=== PATIENT | female | born 1935 | race Hispanic/Latino ===

== ENCOUNTER 2017-11-07 17:47 | Inpatient (IN) | payer OTHER ==
[~2017-11-07] VITALS: Ht 162.6 cm; Wt 78.1 kg
[~2017-11-07 17:47] MED LIST: BENZ1LOZ68 MM; BETA15OI19 TP; ESOM40CA54 PO; FERS325 PO; FURO20TA4 PO; INSU100I13 SQ; METO-391 PO; MIRT30TA6 PO; MONT10TA24 PO; SIMV10TA6 PO; TRAM50TA4 PO; VALS320T16 PO
[2017-11-07 19:19] LABS: CREATININE 0.9 mg/dL (0.5-1.5); POTASSIUM 3.6 mmol/L (3.5-5.1)
[2017-11-07 19:24] LABS: ALBUMIN 2.7 g/dL (3.5-5.0); BILIRUBIN,TOTAL 1.6 mg/dL (0.2-1.0); TOTAL PROTEIN, SERUM 7.5 g/dL (6.0-8.3)
[2017-11-07 19:25] LABS: BASOPHILS % (AUTO) 0.7 % (0.0-5.0); EOSINOPHILS % (AUTO) 2.2 % (0.0-8.0); HEMATOCRIT 32.3 % (36-48); LYMPHOCYTES % (AUTO) 30.9 % (21.0-51.0); MEAN CORPUSCULAR HEMOGLOBIN 34.3 pg (27.0-33.0); MEAN CORPUSCULAR HGB CONC 34.7 g/dL (32.0-36.0); MEAN CORPUSCULAR VOLUME 98.8 fL (79-99); MONOCYTES % (AUTO) 14.8 % (3.0-13.0); NEUTROPHILS % (AUTO) 51.4 % (40.0-77.0); NUCLEATED RED BLOOD CELLS 0.1 % (0.0-0.19); PLATELET COUNT (AUTO) 122 K/uL (130-400); RED BLOOD CELL COUNT(AUTO) 3.27 MIL/uL (4.00-5.50); RED CELL DISTRIBUTION WIDTH 15.1 % (11.0-15.5); WHITE BLOOD COUNT (AUTO) 4.9 K/uL (4.8-10.8)
[2017-11-07 19:59] LABS: INR 1.15 (0.85-1.15); PARTIAL THROMBOPLASTIN TIME 26.3 SEC (26.3-35.5)
[2017-11-07 21:13] VITALS: BP 148/64
[2017-11-07] MEDS ORDERED: SODIUM CHLORIDE 0.9% 10 ML VIAL IVP PRN (21:30)
[2017-11-07] MEDS ORDERED: DEXTROSE 50%-WATER 50 ML DISP.SYRIN IV PRN (21:45)
[2017-11-07] MEDS ORDERED: GLUCAGON 1MG KIT 1 MG ML IM PRN (21:45)
[2017-11-07] MEDS ORDERED: GLIM2TAB3 PO (21:53)
[2017-11-07] MEDS ORDERED: FURO40TA7 PO (21:53)
[2017-11-07] MEDS ORDERED: FLUT16H NASAL (21:53)
[2017-11-07] MEDS ORDERED: ACET-2247 PO (21:53)
[2017-11-07] MEDS ORDERED: DULO20CA17 PO (21:53)
[2017-11-07] MEDS ORDERED: OMEP20CA10 PO (21:53)
[2017-11-07] MEDS ORDERED: NITR0.4T50 SL (21:53)
[2017-11-07] MEDS ORDERED: CHOL50004 PO (21:53)
[2017-11-07] MEDS ORDERED: LACT10SO9 PO (21:53)
[2017-11-07] MEDS ORDERED: LINA5TAB PO (21:53)
[2017-11-07] MEDS ORDERED: FUROSEMIDE 10 MG/ML 4ML VIAL ONE (22:36)
[2017-11-07 23:23] VITALS: BP 110/44
[2017-11-08 00:49] LABS: APPEARANCE,URINE Clear (CLEAR); BILIRUBIN,URINE Negative (NEGATIVE); COLOR,URINE Yellow (YELLOW); GLUCOSE, URINE (UA) Negative (NEGATIVE); KETONES,URINE Negative (NEGATIVE); LEUKOCYTE ESTERASE ,URINE Moderate (NEGATIVE); NITRATE,URINE Negative (NEGATIVE); OCCULT BLOOD,URINE Negative (NEGATIVE); PH,URINE 5.5 (5.0-8.0); PROTEIN,URINE Negative (NEGATIVE); UROBILINOGEN,URINE 0.2 mg/dL (0.2-1.0)
[2017-11-08 00:58] LABS: BACTERIA,URINE None Seen /HPF (None Seen); RBC,URINE None Seen /HPF (0-1); SQUAMOUS EPITHELIAL CELL,UR Few /HPF (0-2); WBC,URINE 0-1 /HPF (0-1)
[2017-11-08 03:47] VITALS: BP 103/57
[2017-11-08 03:51] LABS: HEMATOCRIT 29.6 % (36-48); MEAN CORPUSCULAR HEMOGLOBIN 35.2 pg (27.0-33.0); MEAN CORPUSCULAR HGB CONC 35.6 g/dL (32.0-36.0); MEAN CORPUSCULAR VOLUME 98.7 fL (79-99); NUCLEATED RED BLOOD CELLS 0.2 % (0.0-0.19); PLATELET COUNT (AUTO) 119 K/uL (130-400); RED BLOOD CELL COUNT(AUTO) 2.99 MIL/uL (4.00-5.50); RED CELL DISTRIBUTION WIDTH 15.7 % (11.0-15.5); WHITE BLOOD COUNT (AUTO) 4.9 K/uL (4.8-10.8)
[2017-11-08 04:07] LABS: HEMOGLOBIN A1C 6.4 % (4.0-6.0)
[2017-11-08 04:17] LABS: ALBUMIN 2.3 g/dL (3.5-5.0); BILIRUBIN,TOTAL 1.5 mg/dL (0.2-1.0); CREATININE 0.9 mg/dL (0.5-1.5); POTASSIUM 3.4 mmol/L (3.5-5.1); THYROID STIMULATING HORMONE 2.48 uIU/mL (0.36-3.74); TOTAL PROTEIN, SERUM 6.6 g/dL (6.0-8.3)
[2017-11-08] MEDS ORDERED: POTASSIUM CHLORIDE 20MEQ/100ML 100 ML IV PRN (05:30)
[2017-11-08] MEDS ORDERED: LIDOCAINE HCL-MPF 1% 2ML VIAL IVP PRN (05:30)
[2017-11-08] MEDS ORDERED: POTASSIUM CHLORIDE 10% ELIXIR 20 MEQ/15 ML UDCUP PO PRN (05:30)
[2017-11-08] MEDS: POTASSIUM CHLORIDE 20 MEQ ERTAB PO PRN (06:19)
[2017-11-08] MEDS: SPIRONOLACTONE 25 MG TAB PO SCH ×2 (06:20→12:08)
[2017-11-08] MEDS: INSULIN R PO SS1 SQ SCH ×4 (06:21→21:23)
[2017-11-08] MEDS: FUROSEMIDE 10 MG/ML 4ML VIAL IVP SCH ×2 (06:21→12:08)
[2017-11-08 07:45] VITALS: BP 121/62
[2017-11-08] MEDS: POTASSIUM CHLORIDE 10% ELIXIR 20 MEQ/15 ML UDCUP PO SCH ×3 (10:18→21:20)
[2017-11-08 11:16] VITALS: BP 109/71
[2017-11-08 15:49] VITALS: BP 108/59
[2017-11-08 19:43] VITALS: BP 115/61
[2017-11-08] MEDS: MONTELUKAST SODIUM 10 MG TAB PO SCH (21:21)
[2017-11-08] MEDS: METOPROLOL TARTRATE 25 MG TAB PO SCH (21:21)
[2017-11-08] MEDS: MIRTAZAPINE 15 MG TABLET PO SCH (21:21)
[2017-11-08 23:28] VITALS: BP 111/73
[2017-11-09 03:36] VITALS: BP 105/48
[2017-11-09 03:48] LABS: HEMATOCRIT 29.8 % (36-48); MEAN CORPUSCULAR HEMOGLOBIN 34.4 pg (27.0-33.0); MEAN CORPUSCULAR VOLUME 98.3 fL (79-99); PLATELET COUNT (AUTO) 114 K/uL (130-400); RED BLOOD CELL COUNT(AUTO) 3.03 MIL/uL (4.00-5.50); RED CELL DISTRIBUTION WIDTH 15.2 % (11.0-15.5); WHITE BLOOD COUNT (AUTO) 5.3 K/uL (4.8-10.8)
[2017-11-09 03:56] LABS: INR 1.24 (0.85-1.15); PARTIAL THROMBOPLASTIN TIME 26.4 SEC (26.3-35.5)
[2017-11-09 03:57] LABS: CREATININE 0.9 mg/dL (0.5-1.5); MAGNESIUM 1.8 mg/dL (1.80-2.40); POTASSIUM 4.3 mmol/L (3.5-5.1)
[2017-11-09] MEDS: FUROSEMIDE 10 MG/ML 4ML VIAL IVP SCH ×2 (06:44→12:29)
[2017-11-09] MEDS: INSULIN R PO SS1 SQ SCH ×4 (06:44→21:00)
[2017-11-09] MEDS: SPIRONOLACTONE 25 MG TAB PO SCH ×2 (06:44→12:29)
[2017-11-09 07:37] VITALS: BP 108/51
[2017-11-09] MEDS: **HM** DULOXETINE 20MG PO SCH (07:54)
[2017-11-09] MEDS: LACTULOSE 20 GM/30 ML UDCUP PO SCH (07:54)
[2017-11-09] MEDS: METOPROLOL TARTRATE 25 MG TAB PO SCH ×2 (07:55→21:46)
[2017-11-09] MEDS: POTASSIUM CHLORIDE 10% ELIXIR 20 MEQ/15 ML UDCUP PO SCH ×3 (07:56→21:47)
[2017-11-09] MEDS: LINAGLIPTIN 5 MG TABLET PO SCH (07:56)
[2017-11-09] MEDS ORDERED: CEFTRIAXONE 1GM/D5W 50ML 50 ML IV SCH (09:45)
[2017-11-09 10:05] LABS: RETICULOCYTE % (AUTO) 2.28 % (0.42-2.23)
[2017-11-09] MEDS: CEFTRIAXONE SODIUM 1 GM IVP SCH (10:06)
[2017-11-09 10:40] LABS: % IRON SATURATION 54.5 % (22-44); FERRITIN 71 ng/mL (15-150); IRON, SERUM 137 mcg/dL (50-170); TOTAL IRON BINDING CAPACITY 251 mcg/dL (250-450)
[2017-11-09 11:22] LABS: HEPATITIS A ANTIBODY IGM Negative (Negative); HEPATITIS B CORE IGM Negative (Negative); HEPATITIS Bs ANTIGEN SCREEN P Negative (Negative)
[2017-11-09 12:38] VITALS: BP 112/59
[2017-11-09 16:00] VITALS: BP 108/52
[2017-11-09 19:57] VITALS: BP 100/66
[2017-11-09] MEDS: MONTELUKAST SODIUM 10 MG TAB PO SCH (21:46)
[2017-11-09] MEDS: MIRTAZAPINE 15 MG TABLET PO SCH (21:46)
[2017-11-09 23:57] VITALS: BP 118/58
[2017-11-10 03:39] VITALS: BP 114/56
[2017-11-10 03:56] LABS: HEMATOCRIT 31.7 % (36-48); MEAN CORPUSCULAR HEMOGLOBIN 34.5 pg (27.0-33.0); MEAN CORPUSCULAR HGB CONC 34.8 g/dL (32.0-36.0); MEAN CORPUSCULAR VOLUME 99.2 fL (79-99); NUCLEATED RED BLOOD CELLS 0.1 % (0.0-0.19); PLATELET COUNT (AUTO) 132 K/uL (130-400); RED CELL DISTRIBUTION WIDTH 15.5 % (11.0-15.5)
[2017-11-10 04:14] LABS: BAND NEUTROPHILS % (MANUAL) 7 % (0-2); BASOPHILS % (MANUAL) 1 % (0-2); EOSINOPHILS % (MANUAL) 1 % (1-6); LYMPHOCYTES % (MANUAL) 20 % (22-44); MAN.DIFF COMMENT-IMPRESSION MANUAL DIFFERENTIAL; MONOCYTES % (MANUAL) 8 % (2-9); SEGMENTED NEUTROPHILS % 63 % (40-70)
[2017-11-10 04:15] LABS: PLATELET MORPHOLOGY COMMENT SLIGHTLY DECREASED
[2017-11-10 04:16] LABS: ALBUMIN 2.2 g/dL (3.5-5.0); BILIRUBIN,TOTAL 1.3 mg/dL (0.2-1.0); MAGNESIUM 1.9 mg/dL (1.80-2.40); PHOSPHORUS 3.3 mg/dL (2.5-4.9); POTASSIUM 4.8 mmol/L (3.5-5.1); TOTAL PROTEIN, SERUM 6.7 g/dL (6.0-8.3)
[2017-11-10 05:02] LABS: ERYTHROCYTE SEDIMENTATION RATE 35 MM/HR (0-15)
[2017-11-10 05:21] LABS: B-TYPE NATRIURETIC PEPTIDE 377 pg/mL (0-100)
[2017-11-10] MEDS: SPIRONOLACTONE 25 MG TAB PO SCH ×2 (06:41→14:56)
[2017-11-10] MEDS: FUROSEMIDE 10 MG/ML 4ML VIAL IVP SCH ×2 (06:41→14:57)
[2017-11-10] MEDS: INSULIN R PO SS1 SQ SCH ×4 (06:42→21:00)
[2017-11-10 07:00] VITALS: BP 114/59
[2017-11-10] MEDS: **HM** DULOXETINE 20MG PO SCH (09:00)
[2017-11-10] MEDS: METOPROLOL TARTRATE 25 MG TAB PO SCH ×2 (10:03→21:34)
[2017-11-10] MEDS: CEFTRIAXONE SODIUM 1 GM IVP SCH (10:03)
[2017-11-10] MEDS: LINAGLIPTIN 5 MG TABLET PO SCH (10:04)
[2017-11-10] MEDS: POTASSIUM CHLORIDE 10% ELIXIR 20 MEQ/15 ML UDCUP PO SCH ×3 (10:15→21:35)
[2017-11-10] MEDS: LACTULOSE 20 GM/30 ML UDCUP PO SCH (10:15)
[2017-11-10 11:00] VITALS: BP 124/61
[2017-11-10] MEDS: POTASSIUM CHLORIDE 20 MEQ ERTAB PO PRN ×2 (14:57→14:58)
[2017-11-10 16:00] VITALS: BP 105/59
[2017-11-10 19:44] VITALS: BP 113/57
[2017-11-10] MEDS: MONTELUKAST SODIUM 10 MG TAB PO SCH (21:33)
[2017-11-10] MEDS: MIRTAZAPINE 15 MG TABLET PO SCH (21:34)
[2017-11-10 23:46] VITALS: BP 116/59
[2017-11-11 03:44] VITALS: BP 127/56
[2017-11-11 04:43] LABS: CREATININE 1.1 mg/dL (0.5-1.5); POTASSIUM 4.9 mmol/L (3.5-5.1)
[2017-11-11] MEDS: INSULIN R PO SS1 SQ SCH ×2 (05:35→13:52)
[2017-11-11] MEDS: SPIRONOLACTONE 25 MG TAB PO SCH ×2 (06:22→13:53)
[2017-11-11] MEDS: FUROSEMIDE 10 MG/ML 4ML VIAL IVP SCH (06:23)
[2017-11-11 07:00] VITALS: BP 134/53
[2017-11-11] MEDS: **HM** DULOXETINE 20MG PO SCH (08:45)
[2017-11-11] MEDS: LINAGLIPTIN 5 MG TABLET PO SCH (08:46)
[2017-11-11] MEDS: METOPROLOL TARTRATE 25 MG TAB PO SCH (08:46)
[2017-11-11] MEDS: LACTULOSE 20 GM/30 ML UDCUP PO SCH (08:48)
[2017-11-11] MEDS: POTASSIUM CHLORIDE 20 MEQ ERTAB PO PRN ×2 (08:48→08:49)
[2017-11-11] MEDS: POTASSIUM CHLORIDE 10% ELIXIR 20 MEQ/15 ML UDCUP PO SCH ×2 (08:50→14:00)
[2017-11-11] MEDS ORDERED: LEVOFLOXACIN 500 MG TABLET PO SCH (09:00)
[2017-11-11] MEDS ORDERED: FUROSEMIDE 40 MG TABLET PO SCH (09:00)
[2017-11-11] MEDS: CEFTRIAXONE SODIUM 1 GM IVP SCH (09:45)
[2017-11-11 11:00] VITALS: BP 114/61
[2017-11-11] MEDS ORDERED: POTASSIUM CHLORIDE 10 MEQ/TAB.SA PO ONE (14:07)
== END 2017-11-11 16:28 | disposition home or self-care (01) | DRG 689 ==
LOC: EDH 17:47 → OBSVTOIN 17:48 → EDHIP 17:48 → INTOOBSV 17:48 → 2AH 20:36
PROVIDERS: ADMIT Internal Medicine; ATTEND Internal Medicine
DX: N39.0 Urinary tract infection, site not specified (principal); I50.33 Acute on chronic diastolic (congestive) heart failure; R18.8 Other ascites; D69.6 Thrombocytopenia, unspecified; D64.9 Anemia, unspecified; E11.9 Type 2 diabetes mellitus without complications; E78.5 Hyperlipidemia, unspecified; E87.6 Hypokalemia; K74.60 Unspecified cirrhosis of liver; I45.9 Conduction disorder, unspecified; R29.6 Repeated falls; I11.0 Hypertensive heart disease with heart failure; F32.9 Major depressive disorder, single episode, unspecified; Z79.899 Other long term (current) drug therapy; Z82.49 Family history of ischemic heart disease and other diseases of the circulatory system; Z90.710 Acquired absence of both cervix and uterus; Z95.0 Presence of cardiac pacemaker; Z90.49 Acquired absence of other specified parts of digestive tract; Z88.8 Allergy status to other drugs, medicaments and biological substances
CPT/HCPCS: 36415; 71045; 74176; 80048; 80053; 80074; 81001; 82140; 82607; 82728; 82746; 82948; 83036; 83735; 83880; 84100; 84443; 85025; 85027; 85060; 85610; 85651; 85730; 87077; 87088; 87186; 93005; 93306; 97039; A4218; J0696; J1940

== ENCOUNTER 2017-12-03 10:05 | Inpatient (IN) | payer OTHER ==
[~2017-12-03 10:05] MED LIST changes: -BENZ1LOZ68 MM; -BETA15OI19 TP; +CHOL50004 PO; +DULO20CA17 PO; -ESOM40CA54 PO; -FERS325 PO; +FLUT16H NASAL; -FURO20TA4 PO; +FURO40TA7 PO; +GLIM2TAB3 PO; -INSU100I13 SQ; +LACT10SO9 PO; +LINA5TAB PO; +NITR0.4T50 SL; +OMEP20CA10 PO; -TRAM50TA4 PO; -VALS320T16 PO
[2017-12-03 10:40] LABS: BASOPHILS % (AUTO) 0.7 % (0.0-5.0); EOSINOPHILS % (AUTO) 1.6 % (0.0-8.0); HEMATOCRIT 37.8 % (36-48); MEAN CORPUSCULAR HEMOGLOBIN 34.2 pg (27.0-33.0); MEAN CORPUSCULAR HGB CONC 35.3 g/dL (32.0-36.0); MEAN CORPUSCULAR VOLUME 96.7 fL (79-99); MONOCYTES % (AUTO) 13.3 % (3.0-13.0); NEUTROPHILS % (AUTO) 41.4 % (40.0-77.0); PLATELET COUNT (AUTO) 94 K/uL (130-400); RED BLOOD CELL COUNT(AUTO) 3.91 MIL/uL (4.00-5.50); RED CELL DISTRIBUTION WIDTH 14.3 % (11.0-15.5)
[2017-12-03 10:50] LABS: CREATININE 0.9 mg/dL (0.5-1.5); POTASSIUM 4.1 mmol/L (3.5-5.1)
[2017-12-03 10:55] LABS: BILIRUBIN,TOTAL 1.2 mg/dL (0.2-1.0); TOTAL PROTEIN, SERUM 8.7 g/dL (6.0-8.3)
[2017-12-03 11:32] LABS: APPEARANCE,URINE Clear (CLEAR); BILIRUBIN,URINE Negative (NEGATIVE); COLOR,URINE Yellow (YELLOW); GLUCOSE, URINE (UA) Negative (NEGATIVE); KETONES,URINE Negative (NEGATIVE); LEUKOCYTE ESTERASE ,URINE Negative (NEGATIVE); NITRATE,URINE Negative (NEGATIVE); OCCULT BLOOD,URINE Nonhemolyzed Trace (NEGATIVE); PROTEIN,URINE Negative (NEGATIVE)
[2017-12-03 12:13] LABS: BACTERIA,URINE Rare /HPF (None Seen); RBC,URINE 0-1 /HPF (0-1); WBC,URINE 0-1 /HPF (0-1)
[2017-12-03 12:14] LABS: SQUAMOUS EPITHELIAL CELL,UR Rare /HPF (0-2)
[2017-12-03] MEDS ORDERED: LACTULOSE 20 GM/30 ML UDCUP ONE ×3 (12:51→22:18)
[2017-12-03] MEDS: LACTULOSE 20 GM/30 ML UDCUP PO SCH ×2 (16:00→22:21)
[2017-12-03] MEDS ORDERED: SODIUM CHLORIDE 0.9% 1000ML 1,000 ML IV ONE (19:59)
[2017-12-03] MEDS: SODIUM CHLORIDE 0.9% 1000ML 1,000 ML IV SCH (20:00)
[2017-12-03 20:12] VITALS: BP 100/71
[2017-12-03] MEDS ORDERED: INSU100I3 SQ (21:51)
[2017-12-03] MEDS ORDERED: LACT10SO8 PO (21:51)
[2017-12-03] MEDS ORDERED: DICL2100G TP (21:51)
[2017-12-03] MEDS ORDERED: PANT40TA25 PO (21:51)
[2017-12-03] MEDS ORDERED: SPIR25TA PO (21:51)
[2017-12-04 00:02] VITALS: BP 117/57
[2017-12-04 04:13] VITALS: BP 123/58
[2017-12-04] MEDS: LACTULOSE 20 GM/30 ML UDCUP PO SCH ×6 (04:21→23:40)
[2017-12-04] MEDS: SODIUM CHLORIDE 0.9% 1000ML 1,000 ML IV SCH (04:56)
[2017-12-04] MEDS ORDERED: SODIUM CHLORIDE 0.9% 1000ML 1,000 ML IV ONE (04:56)
[2017-12-04] MEDS ORDERED: ACETAMINOPHEN 325 MG TAB PO PRN (05:00)
[2017-12-04] MEDS ORDERED: HYDRALAZINE HCL 20 MG/ML VIAL IV PRN (05:00)
[2017-12-04] MEDS ORDERED: ONDANSETRON HCL MDV 20ML 2 MG/ML VIAL IV PRN (05:00)
[2017-12-04 07:55] LABS: ALBUMIN 2.6 g/dL (3.5-5.0); BILIRUBIN,TOTAL 1.3 mg/dL (0.2-1.0); CREATININE 1.1 mg/dL (0.5-1.5); POTASSIUM 3.8 mmol/L (3.5-5.1); TOTAL PROTEIN, SERUM 7.5 g/dL (6.0-8.3)
[2017-12-04 08:39] LABS: HEMATOCRIT 35.4 % (36-48); MEAN CORPUSCULAR HEMOGLOBIN 32.9 pg (27.0-33.0); MEAN CORPUSCULAR HGB CONC 34.2 g/dL (32.0-36.0); MEAN CORPUSCULAR VOLUME 96.3 fL (79-99); NUCLEATED RED BLOOD CELLS 0.1 % (0.0-0.19); PLATELET COUNT (AUTO) 102 K/uL (130-400); RED BLOOD CELL COUNT(AUTO) 3.68 MIL/uL (4.00-5.50); RED CELL DISTRIBUTION WIDTH 14.2 % (11.0-15.5); WHITE BLOOD COUNT (AUTO) 4.1 K/uL (4.8-10.8)
[2017-12-04] MEDS ORDERED: LACTULOSE 20 GM/30 ML UDCUP ONE (10:24)
[2017-12-04 12:00] VITALS: BP 142/71
[2017-12-04 16:50] VITALS: BP 134/83
[2017-12-04] MEDS: INSULIN HUMULIN R 100 UNIT/ML 3ML SQ SCH ×2 (17:43→23:41)
[2017-12-04 19:25] VITALS: BP 143/71
[2017-12-04 23:47] VITALS: BP 125/52
[2017-12-05 04:00] VITALS: BP 142/91
[2017-12-05 04:35] LABS: HEMATOCRIT 37.8 % (36-48); MEAN CORPUSCULAR HEMOGLOBIN 32.7 pg (27.0-33.0); MEAN CORPUSCULAR HGB CONC 33.7 g/dL (32.0-36.0); NUCLEATED RED BLOOD CELLS 0.1 % (0.0-0.19); PLATELET COUNT (AUTO) 85 K/uL (130-400); RED CELL DISTRIBUTION WIDTH 14.7 % (11.0-15.5); WHITE BLOOD COUNT (AUTO) 5.4 K/uL (4.8-10.8)
[2017-12-05 04:47] LABS: POTASSIUM 3.6 mmol/L (3.5-5.1)
[2017-12-05 04:51] LABS: BAND NEUTROPHILS % (MANUAL) 1 % (0-2); BASOPHILS % (MANUAL) 1 % (0-2); EOSINOPHILS % (MANUAL) 3 % (1-6); LYMPHOCYTES % (MANUAL) 38 % (22-44); MAN.DIFF COMMENT-IMPRESSION MANUAL DIFFERENTIAL; MONOCYTES % (MANUAL) 8 % (2-9); PLATELET MORPHOLOGY COMMENT DECREASED; SEGMENTED NEUTROPHILS % 49 % (40-70)
[2017-12-05] MEDS: INSULIN HUMULIN R 100 UNIT/ML 3ML SQ SCH ×3 (06:19→17:14)
[2017-12-05] MEDS: SODIUM CHLORIDE 0.9% 1000ML 1,000 ML IV SCH ×2 (07:30)
[2017-12-05 08:00] VITALS: BP 124/72
[2017-12-05] MEDS: LACTULOSE 20 GM/30 ML UDCUP PO SCH ×2 (09:00→15:04)
[2017-12-05 11:34] VITALS: BP 132/61
[2017-12-05 16:00] VITALS: BP 120/65
[2017-12-05 19:19] VITALS: BP 113/56
== END 2017-12-05 21:15 | DRG 441 ==
LOC: EDH 10:05 → EDHIP 15:07 → 4CH 12-04 11:31 → 3BH 12-04 16:42
PROVIDERS: ADMIT Family Medicine; ATTEND Family Medicine
DX: K72.00 Acute and subacute hepatic failure without coma (principal); E43 Unspecified severe protein-calorie malnutrition; E11.9 Type 2 diabetes mellitus without complications; K74.60 Unspecified cirrhosis of liver; E66.01 Morbid (severe) obesity due to excess calories; I10 Essential (primary) hypertension; E78.5 Hyperlipidemia, unspecified; Z90.710 Acquired absence of both cervix and uterus; Z88.8 Allergy status to other drugs, medicaments and biological substances; Z95.0 Presence of cardiac pacemaker; Z82.49 Family history of ischemic heart disease and other diseases of the circulatory system
CPT/HCPCS: 36415; 70450; 80048; 80053; 81001; 82140; 82948; 85025; 85027; 97039; 99291; J1815; J7030

== ENCOUNTER 2019-09-18 20:25 | Emergency (ER) | payer OTHER ==
[~2019-09-18 20:25] MED LIST changes: +DICL2100G TP; -DULO20CA17 PO; -GLIM2TAB3 PO; +GLIM2TAB30 PO; +INSU100I3 SQ; -LACT10SO9 PO; -MONT10TA24 PO; +MONT10TA26 PO; -NITR0.4T50 SL; -OMEP20CA10 PO; +OMEP20CA12 PO; +PANT40TA25 PO; -SIMV10TA6 PO; +SIMV10TA97 PO; +SPIR25TA PO
[2019-09-18 20:40] LABS: BASOPHILS % (AUTO) 0.6 % (0.0-5.0); EOSINOPHILS % (AUTO) 3.4 % (0.0-8.0); HEMATOCRIT 26.7 % (36-48); LYMPHOCYTES % (AUTO) 21.5 % (21.0-51.0); MEAN CORPUSCULAR HEMOGLOBIN 34.9 pg (27.0-33.0); MONOCYTES % (AUTO) 18.4 % (3.0-13.0); NEUTROPHILS % (AUTO) 55.4 % (40.0-77.0); PLATELET COUNT (AUTO) 124 K/uL (130-400); RED BLOOD CELL COUNT(AUTO) 2.52 MIL/uL (4.00-5.50); RED CELL DISTRIBUTION WIDTH 14.4 % (11.0-15.5); WHITE BLOOD COUNT (AUTO) 7.2 K/uL (4.8-10.8)
[2019-09-18 20:51] LABS: CREATININE 2.6 mg/dL (0.5-1.5); POTASSIUM 4.5 mmol/L (3.5-5.1)
[2019-09-18 20:54] LABS: INR 1.22 (0.85-1.15); PARTIAL THROMBOPLASTIN TIME 26.8 SEC (26.3-35.5); PROTHROMBIN TIME 12.7 SEC (9.6-11.6)
[2019-09-18 20:55] LABS: BILIRUBIN,TOTAL 1.4 mg/dL (0.2-1.0); TOTAL PROTEIN, SERUM 7.5 g/dL (6.0-8.3)
[2019-09-18] MEDS ORDERED: ACETAMINOPHEN 325 MG TAB ONE (22:21)
== END 2019-09-18 22:30 ==
LOC: EDH 20:25
DX: S79.911A Unspecified injury of right hip, initial encounter (principal); M25.551 Pain in right hip; R51 Headache; M19.90 Unspecified osteoarthritis, unspecified site; E11.9 Type 2 diabetes mellitus without complications; E78.5 Hyperlipidemia, unspecified; I10 Essential (primary) hypertension; I50.9 Heart failure, unspecified; Z88.8 Allergy status to other drugs, medicaments and biological substances; Z88.1 Allergy status to other antibiotic agents; Z88.6 Allergy status to analgesic agent; Z91.040 Latex allergy status; W05.0XXA Fall from non-moving wheelchair, initial encounter; Y93.89 Activity, other specified; Y92.89 Other specified places as the place of occurrence of the external cause; Y99.8 Other external cause status
CPT/HCPCS: 36415; 70450; 72125; 72192; 80053; 82550; 84484; 85025; 85610; 85730; 93005

== ENCOUNTER 2019-09-27 21:23 | Inpatient (IN) | payer OTHER, MEDICARE ==
[~2019-09-27] VITALS: Ht 162.6 cm; Wt 75.7 kg
[2019-09-27 21:48] LABS: BASOPHILS % (AUTO) 0.5 % (0.0-5.0); EOSINOPHILS % (AUTO) 2.6 % (0.0-8.0); HEMATOCRIT 24.2 % (36-48); LYMPHOCYTES % (AUTO) 22.2 % (21.0-51.0); MEAN CORPUSCULAR HEMOGLOBIN 35.2 pg (27.0-33.0); MEAN CORPUSCULAR HGB CONC 33.9 g/dL (32.0-36.0); MEAN CORPUSCULAR VOLUME 103.9 fL (79-99); MONOCYTES % (AUTO) 15.1 % (3.0-13.0); PLATELET COUNT (AUTO) 120 K/uL (130-400); RED BLOOD CELL COUNT(AUTO) 2.33 MIL/uL (4.00-5.50); WHITE BLOOD COUNT (AUTO) 6.5 K/uL (4.8-10.8)
[2019-09-27 22:00] LABS: INR 1.14 (0.85-1.15); PARTIAL THROMBOPLASTIN TIME 25.2 SEC (26.3-35.5); PROTHROMBIN TIME 12.3 SEC (9.6-11.6)
[2019-09-27 22:03] LABS: ALBUMIN 2.7 g/dL (3.5-5.0); BILIRUBIN,TOTAL 1.3 mg/dL (0.2-1.0); CREATININE 2.9 mg/dL (0.5-1.5); POTASSIUM 4.3 mmol/L (3.5-5.1); TOTAL PROTEIN, SERUM 6.9 g/dL (6.0-8.3)
[2019-09-27] MEDS ORDERED: SODIUM CHLORIDE 0.9% 1000ML 2,000 ML IV ONE (22:51)
[2019-09-27 23:27] LABS: APPEARANCE,URINE Clear (CLEAR); BILIRUBIN,URINE Negative (NEGATIVE); COLOR,URINE Yellow (YELLOW); GLUCOSE, URINE (UA) Negative (NEGATIVE); KETONES,URINE Negative (NEGATIVE); LEUKOCYTE ESTERASE ,URINE Negative (NEGATIVE); NITRATE,URINE Positive (NEGATIVE); OCCULT BLOOD,URINE Negative (NEGATIVE); PROTEIN,URINE Negative (NEGATIVE); UROBILINOGEN,URINE 0.2 mg/dL (0.2-1.0)
[2019-09-27 23:35] LABS: BACTERIA,URINE Moderate /HPF (None Seen); RBC,URINE None Seen /HPF (0-1); SQUAMOUS EPITHELIAL CELL,UR Rare /HPF (0-2); WBC,URINE 0-1 /HPF (0-1)
[2019-09-28] VITALS (18 sets, daily range): BP systolic 89–128; BP diastolic 36–70
[2019-09-28] MEDS ORDERED: VANCOMYCIN 1GM+NS 250ML 250 ML IV ONE (00:02)
[2019-09-28] MEDS ORDERED: ZOSYN 3.375GM+NS 50ML 50 ML IV ONE ×2 (00:03→07:46)
[2019-09-28] MEDS ORDERED: ONDANSETRON HCL 4 MG/2 ML VIAL IV PRN (03:30)
[2019-09-28] MEDS ORDERED: VANCOMYCIN PROTOCOL PER PHARMACY IV SCH (03:30)
[2019-09-28] MEDS ORDERED: ACETAMINOPHEN 325 MG TAB PO PRN ×2 (03:30)
[2019-09-28] MEDS ORDERED: ZOSYN 3.375GM+NS 50ML 50 ML IV SCH (03:30)
[2019-09-28] MEDS ORDERED: PHARMACY COMMUNICATION MISC SCH ×3 (04:00→15:30)
[2019-09-28 06:30] LABS: BASOPHILS % (AUTO) 0.5 % (0.0-5.0); HEMATOCRIT 21.9 % (36-48); MEAN CORPUSCULAR HEMOGLOBIN 34.4 pg (27.0-33.0); MEAN CORPUSCULAR HGB CONC 32.9 g/dL (32.0-36.0); MEAN CORPUSCULAR VOLUME 104.8 fL (79-99); NEUTROPHILS % (AUTO) 52.6 % (40.0-77.0); PLATELET COUNT (AUTO) 104 K/uL (130-400); RED BLOOD CELL COUNT(AUTO) 2.09 MIL/uL (4.00-5.50); RED CELL DISTRIBUTION WIDTH 13.9 % (11.0-15.5); WHITE BLOOD COUNT (AUTO) 5.6 K/uL (4.8-10.8)
[2019-09-28 06:38] LABS: ALBUMIN 2.2 g/dL (3.5-5.0); BILIRUBIN,TOTAL 1.1 mg/dL (0.2-1.0); CREATININE 3.3 mg/dL (0.5-1.5); TOTAL PROTEIN, SERUM 5.8 g/dL (6.0-8.3)
[2019-09-28] MEDS ORDERED: DEXTROSE 50%-WATER 50 ML DISP.SYRIN IV ONE (06:43)
[2019-09-28 07:08] LABS: CREATININE 2.7 mg/dL (0.5-1.5); POTASSIUM 4.1 mmol/L (3.5-5.1)
[2019-09-28] MEDS ORDERED: DEXTROSE 5 %-0.45 % NACL 1,000 ML IV ONE (08:58)
[2019-09-28] MEDS ORDERED: LACTULOSE 20 GM/30 ML UDCUP PO SCH (09:00)
[2019-09-28] MEDS ORDERED: FAMOTIDINE/PF 20 MG/2 ML VIAL IV SCH (09:00)
[2019-09-28] MEDS ORDERED: PANTOPRAZOLE SODIUM 40 MG TABLET.DR PO SCH (09:00)
[2019-09-28] MEDS: SODIUM CHLORIDE 0.9% 1000ML 1,000 ML IV SCH ×2 (09:47→16:50)
[2019-09-28 10:08] LABS: HEMATOCRIT 23.1 % (36-48)
--- NOTE | 2019-09-28 13:00 | NUR ---
REPORT GIVEN TO TRINIDAD, RN AND PATIENT TRANSFERRED TO ROOM 217;FAMILY MEMBERS AT BEDSIDE
[2019-09-28] MEDS ORDERED: LACTULOSE 20 GM/30 ML UDCUP ONE (13:01)
[2019-09-28] MEDS: LACTULOSE 20 GM/30 ML UDCUP PO SCH ×2 (13:02→17:24)
[2019-09-28] MEDS ORDERED: DIPH25 PO (15:36)
[2019-09-28] MEDS ORDERED: CHOL12502 PO (15:36)
[2019-09-28] MEDS ORDERED: ACET-2123 PO (15:36)
[2019-09-28] MEDS ORDERED: SPIR25TA PO (15:36)
[2019-09-28] MEDS ORDERED: DOCU-116 PO (15:41)
[2019-09-28] MEDS ORDERED: ACETAMINOPHEN ELIXIR 650 MG/20.3 ML UDCUP ONE (16:32)
[2019-09-28] MEDS: ZOSYN 3.375GM+NS 50ML 50 ML IV SCH (17:25)
[2019-09-28] MEDS ORDERED: APIX5TAB PO (19:17)
[2019-09-28] MEDS ORDERED: FERS325 PO (19:37)
[2019-09-28] MEDS ORDERED: LACT10SO PO (19:37)
[2019-09-28] MEDS ORDERED: ERYT250C68 PO (19:37)
[2019-09-28] MEDS ORDERED: SITA50TA PO (19:37)
[2019-09-28] MEDS ORDERED: GABA300C PO (19:37)
[2019-09-28] MEDS ORDERED: INSU100I15 SQ (19:37)
[2019-09-28] MEDS ORDERED: FAMO20TA8 PO (19:37)
[2019-09-28] MEDS ORDERED: FLUT16H NS (19:37)
[2019-09-28] MEDS: RIFAXIMIN 200 MG TABLET PO SCH (21:39)
[2019-09-28] MEDS: DEXTROSE 5 %-0.45 % NACL 1,000 ML IV SCH (21:44)
[2019-09-29] VITALS (38 sets, daily range): BP systolic 87–137; BP diastolic 35–85
[2019-09-29] MEDS: ZOSYN 3.375GM+NS 50ML 50 ML IV SCH ×3 (00:15→15:17)
[2019-09-29] MEDS: LACTULOSE 20 GM/30 ML UDCUP PO SCH ×4 (00:15→18:30)
[2019-09-29] MEDS: DEXTROSE 5 %-0.45 % NACL 1,000 ML IV SCH ×2 (03:00→19:38)
--- NOTE | 2019-09-29 04:00 | NUR ---
ASSESSMENT PT RESTING QUIETLY IN BED, FAMILY AT BEDSIDE. PT DENIES ANY PAIN AT PRESENT. PT INSTRUCTED TO NOTIFY RN IF PAIN OCCURS AND RN WILL CONTINUE TO MONITOR. BEDSIDE MONITOR PARAMETERS REVIEWED AND ADJUSTED, CALL WOODRUFF REVIEWED AND WITHIN REACH. ASSESSMENT COMPLETED, SEE FLOW SHEET. Addendum: 09/30/19 at 0542 by ZAHRA CHAIDEZ RN RN DATE SHOULD BE DOCUMENTED : 09/30/2019
[2019-09-29] MEDS: SODIUM CHLORIDE 0.9% 1000ML 1,000 ML IV SCH ×2 (05:46→19:30)
[2019-09-29] MEDS: VANCOMYCIN 1GM+NS 250ML 250 ML IV SCH (08:03)
[2019-09-29] MEDS: RIFAXIMIN 200 MG TABLET PO SCH ×3 (08:06→20:27)
[2019-09-29] MEDS ORDERED: PANTOPRAZOLE 40 MG/VIAL IVP SCH (09:00)
--- NOTE | 2019-09-29 10:55 | NUR ---
DR GAVIN AT BEDSIDE, NEW ORDERS GIVEN
--- NOTE | 2019-09-29 13:15 | NUR ---
DR SOLARES AT BEDSIDE
--- NOTE | 2019-09-29 13:20 | NUR ---
TRANSFERRED TO ENDOSCOPY VIA BED, FOR SCHEDULED EGD
[2019-09-29] MEDS ORDERED: PROPOFOL 10 MG/ML 20ML VIAL IV ONE (14:00)
--- NOTE | 2019-09-29 14:40 | NUR ---
sSKIN TEAR NOTED TO LEFT POSTERIOR FOREARM, APPLIED NON ADHERING TO SITE AND SECURED WITH TAPE.
--- NOTE | 2019-09-29 14:40 | NUR ---
BACK IN ROOM FROM ENDOSCOPY, AAOX1, TO PERSON ONLY. PULLED OWN NGT OUT, CATHETER INTACT. DR GAVIN NOTIFIED, INSTRUCTIONS GIVEN NOT TO REINSERT NGT AND KEEP PATIENT OVERNIGHT IN THE ICU SETTING
--- NOTE | 2019-09-29 15:23 | NUR ---
KALYANI PLAN PATIENT DOWN FOR PROCEDURE. CARIN WILL CONTINUE TO FOLLOW. Addendum: 09/29/19 at 1523 by LIZBETH SALMERON RN CM Amended: Links added.
--- NOTE | 2019-09-29 20:00 | NUR ---
ASSESSMENT PT RESTING QUIETLY IN BED, FAMILY AT BEDSIDE. PT DENIES ANY PAIN AT PRESENT. PT INSTRUCTED TO NOTIFY RN IF PAIN OCCURS AND RN WILL CONTINUE TO MONITOR. BEDSIDE MONITOR PARAMETERS REVIEWED AND ADJUSTED, CALL WOODRUFF REVIEWED AND WITHIN REACH. ASSESSMENT COMPLETED, SEE FLOW SHEET.
[2019-09-29] MEDS: PANTOPRAZOLE SODIUM 40 MG TABLET.DR PO SCH (20:27)
[2019-09-30] VITALS (25 sets, daily range): BP systolic 96–140; BP diastolic 40–80
[2019-09-30] MEDS: LACTULOSE 20 GM/30 ML UDCUP PO SCH ×5 (00:30→23:47)
[2019-09-30] MEDS: ZOSYN 3.375GM+NS 50ML 50 ML IV SCH ×4 (00:39→23:45)
[2019-09-30 06:36] LABS: HEMATOCRIT 22.3 % (36-48); MEAN CORPUSCULAR HEMOGLOBIN 35.2 pg (27.0-33.0); MEAN CORPUSCULAR HGB CONC 33.6 g/dL (32.0-36.0); MEAN CORPUSCULAR VOLUME 104.7 fL (79-99); PLATELET COUNT (AUTO) 94 K/uL (130-400); RED BLOOD CELL COUNT(AUTO) 2.13 MIL/uL (4.00-5.50); RED CELL DISTRIBUTION WIDTH 14.2 % (11.0-15.5); WHITE BLOOD COUNT (AUTO) 5.8 K/uL (4.8-10.8)
[2019-09-30 07:31] LABS: EOSINOPHILS % (MANUAL) 3 % (1-6); LYMPHOCYTES % (MANUAL) 24 % (22-44); MAN.DIFF COMMENT-IMPRESSION MANUAL DIFFERENTIAL; MONOCYTES % (MANUAL) 13 % (2-9); PLATELET MORPHOLOGY COMMENT DECREASED; SEGMENTED NEUTROPHILS % 60 % (40-70)
[2019-09-30] MEDS: SODIUM CHLORIDE 0.9% 1000ML 1,000 ML IV SCH ×2 (08:39→22:08)
[2019-09-30] MEDS: PANTOPRAZOLE SODIUM 40 MG TABLET.DR PO SCH ×2 (08:50→22:08)
[2019-09-30] MEDS: RIFAXIMIN 200 MG TABLET PO SCH ×3 (08:50→22:08)
[2019-09-30] MEDS: DEXTROSE 5 %-0.45 % NACL 1,000 ML IV SCH (08:52)
[2019-09-30 09:28] LABS: CREATININE 2.4 mg/dL (0.5-1.5); POTASSIUM 3.5 mmol/L (3.5-5.1)
--- NOTE | 2019-09-30 10:00 | NUR ---
DYSPHAGIA EVAL COMPLETED. -S/S OF ASPIRATION. RECOMMEND REGULAR TEXTURE, THIN LIQUIDS; PILLS WHOLE WITH LIQUIDS. Addendum: 09/30/19 at 1304 by MARY PIERCE, [facility] Amended: Links added.
--- NOTE | 2019-09-30 14:42 | NUR ---
DC PLAN VISITED WITH PATIENT. FAMILY STEPPED OUT OF ROOM. PATIENT RESTING. 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 CARIN WILL CONTINUE TO FOLLOW. Addendum: 09/30/19 at 1443 by LIZBETH SALMERON RN CM Amended: Links added.
[2019-09-30] MEDS ORDERED: GLUCAGON 1MG KIT 1 MG ML IM PRN (15:30)
[2019-09-30] MEDS ORDERED: DEXTROSE 50%-WATER 50 ML DISP.SYRIN IV PRN (15:30)
[2019-09-30] MEDS: INSULIN HUMULIN R 100 UNIT/ML 3ML SQ SCH ×2 (18:06→22:14)
[2019-10-01] VITALS: BP 122/57
[2019-10-01] MEDS: LACTULOSE 20 GM/30 ML UDCUP PO SCH ×5 (00:06→14:38)
[2019-10-01 04:00] VITALS: BP 102/51
[2019-10-01 04:08] LABS: ALBUMIN 2.1 g/dL (3.5-5.0); MAGNESIUM 2.4 mg/dL (1.80-2.40)
[2019-10-01 04:17] LABS: INR 1.19 (0.85-1.15); PARTIAL THROMBOPLASTIN TIME 26.1 SEC (26.3-35.5); PROTHROMBIN TIME 12.8 SEC (9.6-11.6)
[2019-10-01 05:31] LABS: % IRON SATURATION 20.9 % (22-44)
[2019-10-01] MEDS: INSULIN HUMULIN R 100 UNIT/ML 3ML SQ SCH ×4 (06:24→21:10)
--- NOTE | 2019-10-01 08:00 | NUR ---
PT CHEST PAIN FREE AT THIS TEAM. PLAN OF CARE DISCUSSED. STABLE
[2019-10-01] MEDS: PANTOPRAZOLE SODIUM 40 MG TABLET.DR PO SCH ×2 (09:23→21:09)
[2019-10-01] MEDS: RIFAXIMIN 200 MG TABLET PO SCH ×3 (09:23→21:08)
[2019-10-01] MEDS: ZOSYN 3.375GM+NS 50ML 50 ML IV SCH (09:24)
[2019-10-01] MEDS: VANCOMYCIN 1GM+NS 250ML 250 ML IV SCH (09:24)
[2019-10-01 09:32] LABS: HEMATOCRIT 23.5 % (36-48); MEAN CORPUSCULAR HEMOGLOBIN 34.4 pg (27.0-33.0); MEAN CORPUSCULAR HGB CONC 33.2 g/dL (32.0-36.0); MEAN CORPUSCULAR VOLUME 103.5 fL (79-99); PLATELET COUNT (AUTO) 98 K/uL (130-400); RED BLOOD CELL COUNT(AUTO) 2.27 MIL/uL (4.00-5.50); RED CELL DISTRIBUTION WIDTH 14.2 % (11.0-15.5); WHITE BLOOD COUNT (AUTO) 5.9 K/uL (4.8-10.8)
[2019-10-01 09:38] LABS: BAND NEUTROPHILS % (MANUAL) 1 % (0-2); BASOPHILS % (MANUAL) 1 % (0-2); EOSINOPHILS % (MANUAL) 5 % (1-6); LYMPHOCYTES % (MANUAL) 23 % (22-44); MONOCYTES % (MANUAL) 9 % (2-9); SEGMENTED NEUTROPHILS % 61 % (40-70)
[2019-10-01 09:41] LABS: MAN.DIFF COMMENT-IMPRESSION MANUAL DIFFERENTIAL; PLATELET MORPHOLOGY COMMENT DECREASED
[2019-10-01 10:27] LABS: CREATININE 2.3 mg/dL (0.5-1.5); POTASSIUM 3.6 mmol/L (3.5-5.1)
--- NOTE | 2019-10-01 11:40 | NUR ---
WITH HELP FROM FAMILY PT TOOK HER SCHEDULED MEDS- SHE ALSO TOOK HER LACTULOSE WITH ORANGE JUICE
[2019-10-01 11:53] VITALS: BP 124/55
[2019-10-01] MEDS ORDERED: INSULIN ASPART 3 UNIT SQ PRN (13:00)
[2019-10-01] MEDS ORDERED: CHOLECALCIFEROL 5000 UNIT PO SCH (13:00)
[2019-10-01] MEDS ORDERED: INSULIN LISPRO 100 UNIT/ML 3ML SQ PRN (14:00)
[2019-10-01] MEDS: FUROSEMIDE 20 MG TABLET PO SCH (14:32)
[2019-10-01] MEDS: MIDODRINE HCL 5 MG TABLET PO SCH ×2 (14:33→21:09)
[2019-10-01] MEDS: LEVOFLOXACIN 500 MG TABLET PO SCH (14:33)
[2019-10-01] MEDS: FERROUS SULFATE 325 MG TABLET.DR PO SCH (16:04)
[2019-10-01 16:14] VITALS: BP 130/63
[2019-10-01] MEDS ORDERED: NON-FORMULARY MEDICATION 1 EACH (Ferrous Sulfate 325 MG) PO SCH (16:30)
--- NOTE | 2019-10-01 17:05 | NUR ---
DC PLAN VISITED WITH PATIENT. PATIENT CONFUSED. CALLED DAUGHTER. 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 SAID OKAY FOR THE PATIENT TO RETURN. INFO SENT. EMS SET UP. LET NURSE AND CHARGE NURSE KNOW PATIENT OKAY TO RETURN . CHERYL DONE AND SENT. Addendum: 10/01/19 at 1710 by LIZBETH SALMERON RN CM Amended: Links added.
--- NOTE | 2019-10-01 19:35 | NUR ---
HAND OFF REPORT GIVEN TO GHISLAINE SMITH
[2019-10-01 20:00] VITALS: BP 102/50
[2019-10-01] MEDS: DICLOFENAC SODIUM TP SCH (21:00)
[2019-10-01] MEDS: SPIRONOLACTONE 25 MG TAB PO SCH (21:09)
[2019-10-02] VITALS (16 sets, daily range): BP systolic 110–146; BP diastolic 55–110
[2019-10-02] MEDS: LACTULOSE 20 GM/30 ML UDCUP PO SCH ×4 (00:43→18:30)
[2019-10-02] MEDS: FUROSEMIDE 20 MG TABLET PO SCH ×2 (06:13→14:00)
[2019-10-02] MEDS: INSULIN HUMULIN R 100 UNIT/ML 3ML SQ SCH ×4 (07:07→21:00)
[2019-10-02] MEDS: RIFAXIMIN 200 MG TABLET PO SCH ×3 (08:08→21:00)
[2019-10-02] MEDS: MIDODRINE HCL 5 MG TABLET PO SCH ×3 (08:09→21:00)
[2019-10-02] MEDS: PANTOPRAZOLE SODIUM 40 MG TABLET.DR PO SCH ×2 (08:10→21:00)
[2019-10-02] MEDS: DOCUSATE SODIUM 100 MG CAP PO SCH (08:10)
[2019-10-02] MEDS: FERROUS SULFATE 325 MG TABLET.DR PO SCH ×2 (08:10→16:30)
[2019-10-02] MEDS: FAMOTIDINE 20MG TAB 20 MG TAB PO SCH (08:11)
[2019-10-02] MEDS: SPIRONOLACTONE 25 MG TAB PO SCH ×2 (08:11→21:00)
[2019-10-02 08:39] LABS: HEMATOCRIT 22.6 % (36-48); MEAN CORPUSCULAR HEMOGLOBIN 34.4 pg (27.0-33.0); MEAN CORPUSCULAR HGB CONC 32.7 g/dL (32.0-36.0); MEAN CORPUSCULAR VOLUME 105.1 fL (79-99); PLATELET COUNT (AUTO) 101 K/uL (130-400); RED BLOOD CELL COUNT(AUTO) 2.15 MIL/uL (4.00-5.50); RED CELL DISTRIBUTION WIDTH 14.3 % (11.0-15.5); WHITE BLOOD COUNT (AUTO) 6.1 K/uL (4.8-10.8)
[2019-10-02 08:48] LABS: CREATININE 2.3 mg/dL (0.5-1.5); POTASSIUM 3.5 mmol/L (3.5-5.1)
[2019-10-02] MEDS: FLUTICASONE PROPIONATE 50MCG/SPRAY 16 GM BOTTLE NS SCH (09:00)
[2019-10-02] MEDS: DICLOFENAC SODIUM TP SCH ×3 (09:00→21:00)
[2019-10-02] MEDS ORDERED: Cholecalciferol (Vitamin D3) 5,000 UNIT PO SCH (09:00)
[2019-10-02 09:31] LABS: EOSINOPHILS % (MANUAL) 5 % (1-6); LYMPHOCYTES % (MANUAL) 21 % (22-44); MONOCYTES % (MANUAL) 17 % (2-9); SEGMENTED NEUTROPHILS % 57 % (40-70)
[2019-10-02 09:33] LABS: MAN.DIFF COMMENT-IMPRESSION MANUAL DIFFERENTIAL; PLATELET MORPHOLOGY COMMENT DECREASED
--- NOTE | 2019-10-02 12:13 | NUR ---
DC PLAN PATIENT HAD ALREADY BEEN ACCEPTED TO FACILITY BUT SINCE THEY DID NOT GO BACK YESTERDAY. [employer] SUBMITTED FOR SKILL[facility]. ANTONIO VILLATORO SAID THAT THEY DID SUBMIT LAST NIGHT. SENT INFO TO [facility]. Addendum: 10/02/19 at 1218 by LIZBETH SALMERON RN CM Amended: Links added.
[2019-10-02] MEDS: LEVOFLOXACIN 500 MG TABLET PO SCH (14:00)
[2019-10-03] MEDS: LACTULOSE 20 GM/30 ML UDCUP PO SCH ×4 (00:30→18:18)
[2019-10-03 04:17] VITALS: BP 110/57
[2019-10-03] MEDS: INSULIN HUMULIN R 100 UNIT/ML 3ML SQ SCH ×3 (05:38→16:30)
[2019-10-03 07:00] VITALS: BP 98/53
[2019-10-03] MEDS: DICLOFENAC SODIUM TP SCH ×2 (09:00→14:00)
[2019-10-03] MEDS: FAMOTIDINE 20MG TAB 20 MG TAB PO SCH (09:00)
[2019-10-03] MEDS: FLUTICASONE PROPIONATE 50MCG/SPRAY 16 GM BOTTLE NS SCH (09:00)
[2019-10-03] MEDS: DOCUSATE SODIUM 100 MG CAP PO SCH (09:00)
[2019-10-03] MEDS: MIDODRINE HCL 5 MG TABLET PO SCH ×2 (10:05→14:00)
[2019-10-03] MEDS: PANTOPRAZOLE SODIUM 40 MG TABLET.DR PO SCH (10:05)
[2019-10-03] MEDS: RIFAXIMIN 200 MG TABLET PO SCH ×2 (10:05→14:00)
[2019-10-03] MEDS: FUROSEMIDE 20 MG TABLET PO SCH ×2 (10:06→15:00)
[2019-10-03] MEDS: SPIRONOLACTONE 25 MG TAB PO SCH (10:06)
[2019-10-03] MEDS: FERROUS SULFATE 325 MG TABLET.DR PO SCH ×2 (10:06→16:30)
[2019-10-03 11:00] VITALS: BP 128/72
[2019-10-03 15:00] VITALS: BP 121/55
--- NOTE | 2019-10-03 17:25 | NUR ---
DC PLAN SPOKE TO INSURANCE SAID THAT PATIENT WILL BE DENIED. THEY HAD HER BED BOUND STATUS PRIOR TO ADMISSION. LET [facility] KNOW. SPOKE TO SHAUNA AT 1600 SAID PATIENT OKAY TO RETURN. LET KNOW FOR MED REC. SAID LEAVE FLAGGED IN CHART. CALLED DAUGHTER TO LET HER KNOW WHAT THE PLAN WAS JENNIFER MORRIS [phone]. SAID IF WE CAN CALL ONCE WE CALL THE AMBULANCE WILL LET NURSE KNOW. Addendum: 10/03/19 at 1729 by LIZBETH SALMERON RN CM Amended: Links added.
[2019-10-03] MEDS: LEVOFLOXACIN 500 MG TABLET PO SCH (18:12)
== END 2019-10-03 18:30 | DRG 871 ==
LOC: EDH 21:23 → EDHIP 09-28 03:24 → 2CH 09-28 13:50 → 2DH 10-02 20:18
PROVIDERS: ADMIT Internal Medicine; ATTEND Internal Medicine
PROC: 0W3P8ZZ Control Bleeding in Gastrointestinal Tract, Via Natural or Artificial Opening Endoscopic (ICD-10-PCS; principal; 2019-09-29)
DX: A41.50 Gram-negative sepsis, unspecified (principal); G93.41 Metabolic encephalopathy; K31.811 Angiodysplasia of stomach and duodenum with bleeding; D62 Acute posthemorrhagic anemia; E87.2 Acidosis; K76.6 Portal hypertension; N39.0 Urinary tract infection, site not specified; I13.0 Hypertensive heart and chronic kidney disease with heart failure and stage 1 through stage 4 chronic kidney disease, or unspecified chronic kidney disease; D68.9 Coagulation defect, unspecified; I50.32 Chronic diastolic (congestive) heart failure; D69.6 Thrombocytopenia, unspecified; K27.9 Peptic ulcer, site unspecified, unspecified as acute or chronic, without hemorrhage or perforation; K72.90 Hepatic failure, unspecified without coma; R65.20 Severe sepsis without septic shock; K74.60 Unspecified cirrhosis of liver; M19.90 Unspecified osteoarthritis, unspecified site; B96.20 Unspecified Escherichia coli [E. coli] as the cause of diseases classified elsewhere; E11.22 Type 2 diabetes mellitus with diabetic chronic kidney disease; E66.9 Obesity, unspecified; E78.5 Hyperlipidemia, unspecified; F03.90 Unspecified dementia, unspecified severity, without behavioral disturbance, psychotic disturbance, mood disturbance, and anxiety; I25.10 Atherosclerotic heart disease of native coronary artery without angina pectoris; K21.0 Gastro-esophageal reflux disease with esophagitis; K31.89 Other diseases of stomach and duodenum; N18.9 Chronic kidney disease, unspecified; Z68.28 Body mass index [BMI] 28.0-28.9, adult; Z95.0 Presence of cardiac pacemaker; Z86.718 Personal history of other venous thrombosis and embolism; Z90.710 Acquired absence of both cervix and uterus; Z88.8 Allergy status to other drugs, medicaments and biological substances; Z82.3 Family history of stroke; Z83.6 Family history of other diseases of the respiratory system; Z83.3 Family history of diabetes mellitus; Z80.3 Family history of malignant neoplasm of breast; Z80.0 Family history of malignant neoplasm of digestive organs; Z82.49 Family history of ischemic heart disease and other diseases of the circulatory system
CPT/HCPCS: 36415; 43255; 45388; 70450; 71045; 80048; 80053; 81001; 82040; 82140; 82270; 82948; 83540; 83550; 83605; 83735; 83880; 84100; 84145; 84484; 85014; 85018; 85025; 85610; 85730; 86850; 86900; 86901; 87040; 87077; 87088; 87186; 92610; 93005; 97039; 99291; C1751; C9113; G0378; J1815; J2543; J2704; J3370; J7030; J7042; J7070

== ENCOUNTER 2019-10-13 10:24 | Emergency (ER) | payer OTHER, MEDICARE ==
[~2019-10-13 10:24] MED LIST changes: +ACET-2123 PO; +APIX5TAB PO; +CHOL12502 PO; +DOCU-116 PO; +ERYT250C68 PO; +FAMO20TA8 PO; +FERS325 PO; +FLUT16H NS; +GABA300C PO; -GLIM2TAB30 PO; +INSU100I15 SQ; +LACT10SO PO; -LINA5TAB PO; -METO-391 PO; -MIRT30TA6 PO; -MONT10TA26 PO; -PANT40TA25 PO; -SIMV10TA97 PO; +SITA50TA PO
== END 2019-10-13 11:38 | disposition home or self-care (01) ==
LOC: EDH 10:24
DX: K74.69 Other cirrhosis of liver (principal); E11.9 Type 2 diabetes mellitus without complications; E78.5 Hyperlipidemia, unspecified; I10 Essential (primary) hypertension; M19.90 Unspecified osteoarthritis, unspecified site; Z88.6 Allergy status to analgesic agent; Z88.8 Allergy status to other drugs, medicaments and biological substances; Z91.040 Latex allergy status